=== PATIENT | female | born 1940 | race Caucasian/White ===

== ENCOUNTER 2017-01-21 09:25 | Outpatient (CLI) ==
[2017-01-21 09:45] LABS: BASOPHILS # (AUTO) 0.1 K/uL (0-0.2); BASOPHILS % (AUTO) 0.6 % (0.0-3.0); EOSINOPHILS # (AUTO) 0.1 K/ul (0.0-0.7); EOSINOPHILS % (AUTO) 0.9 % (0.0-7.0); HEMATOCRIT 34.4 % (37.0-47.0); HEMOGLOBIN 12.4 g/dl (12.0-16.0); IMMATURE GRANULOCYTE % (AUTO) 2.1 % (0.0-5.0); LYMPHOCYTES % (AUTO) 22.4 (10.0-50.0); MEAN CORPUSCULAR HEMOGLOBIN 30.8 pg (27.0-31.0); MEAN CORPUSCULAR VOLUME 85.6 fl (81.0-99.0); MONOCYTES # (AUTO) 0.8 K/uL (0.4-2.0); MONOCYTES % (AUTO) 8.9 (0-10); NEUTROPHILS # (AUTO) 5.9 K/ul (2.0-6.9); NEUTROPHILS % (AUTO) 65.1; PLATELET COUNT 288 10^3/uL (140-440); RED BLOOD COUNT 4.02 10^6/ul (4.20-5.40); WHITE BLOOD COUNT 9.08 K/ul (4.6-10.2)
[2017-01-21 10:07] LABS: ALBUMIN 2.8 g/dL (3.4-5.0); ALBUMIN/GLOBULIN RATIO 0.67; BILIRUBIN,TOTAL 0.75 mg/dL (0.00-1.20); BUN/CREATININE RATIO 25.88; CALCIUM 9.5 mg/dL (8.2-10.2); CREATININE 0.85 mg/dL (0.60-1.30)
== END 2017-01-21 09:26 | disposition home or self-care (01) ==
LOC: LAB 09:25
PROVIDERS: ATTEND Family Medicine
DX: E87.6 Hypokalemia (principal)
CPT/HCPCS: 36415; 80053; 85025

== ENCOUNTER 2017-02-13 08:12 | Outpatient (CLI) ==
--- NOTE | 2017-02-13 09:07 | US ---
EXAM: Renal ultrasound HISTORY: Hematuria COMPARISON: None TECHNIQUE: Renal ultrasound was performed FINDINGS: Right kidney measures 4.4 x 3.7 x 10.0 cm. Left kidney measures 4.6 x 1.6 x 10.3 cm. Re nal cortical echogenicity is normal. No hydronephrosis or renal calculus large enough to cause acou stic shadowing. There is a probable cyst in the left mid kidney measuring 1.7 x 3.8 x 1.9 cm, and ap pearing to haveposterior through transmission, though is poorly evaluated due to artifact and may troy ve internal complexity. Bladder grossly unremarkable. IMPRESSION: 1. No hydronephrosis. 2. Probable cyst in the left mid kidney measuring 1.7 x 3.8 x 1.9 cm, though is poorly evaluated du e to artifact and may have internal complexity. Sonographic follow-up recommended 6 months for reeva luation. CT could also be considered for further characterization.
== END 2017-02-13 08:13 | disposition home or self-care (01) ==
LOC: RAD 08:12
PROVIDERS: ATTEND Family Medicine
DX: R31.9 Hematuria, unspecified (principal)
CPT/HCPCS: 76770

== ENCOUNTER 2017-05-14 06:19 | Outpatient (CLI) ==
[2017-05-14 06:35] LABS: BASOPHILS # (AUTO) 0.1 K/uL (0-0.2); BASOPHILS % (AUTO) 0.8 % (0.0-3.0); EOSINOPHILS # (AUTO) 0.1 K/ul (0.0-0.7); EOSINOPHILS % (AUTO) 1.9 % (0.0-7.0); HEMATOCRIT 35.1 % (37.0-47.0); HEMOGLOBIN 12.3 g/dl (12.0-16.0); IMMATURE GRANULOCYTE % (AUTO) 0.3 % (0.0-5.0); LYMPHOCYTES % (AUTO) 31.8 (10.0-50.0); MEAN CORPUSCULAR HEMOGLOBIN 30.9 pg (27.0-31.0); MEAN CORPUSCULAR VOLUME 88.2 fl (81.0-99.0); MONOCYTES # (AUTO) 0.4 K/uL (0.4-2.0); MONOCYTES % (AUTO) 6.6 (0-10); NEUTROPHILS # (AUTO) 3.6 K/ul (2.0-6.9); NEUTROPHILS % (AUTO) 58.6; PLATELET COUNT 199 10^3/uL (140-440); RED BLOOD COUNT 3.98 10^6/ul (4.20-5.40); WHITE BLOOD COUNT 6.17 K/ul (4.6-10.2)
[2017-05-14 06:54] LABS: ALBUMIN 3.5 g/dL (3.4-5.0); BILIRUBIN,TOTAL 0.47 mg/dL (0.00-1.20); BUN/CREATININE RATIO 20.77; CALCIUM 9.8 mg/dL (8.2-10.2); CREATININE 0.77 mg/dL (0.60-1.30)
--- NOTE | 2017-05-14 09:03 | DI ---
EXAM: CHEST FRONTAL AND LATERAL VIEWS HISTORY: Preop, pancreatic mass. COMPARISON: None FINDINGS: Normal heart size. No vascular congestion or consolidated pneumonia. No visible pleural fluid or pneumothorax. Mild hyperinflation. Chronic-appearing interstitial changes. Nodular thicke matthew of the upper pleura bilaterally likely represents fibrosis. Cannot exclude regional pathology ( neoplasia) radiographically. IMPRESSION: 1. No acute process. 2. Mild hyperinflation. 3. Nodular thickening of the apical pleura.
== END 2017-05-14 06:20 | disposition home or self-care (01) ==
LOC: RAD 06:19
PROVIDERS: ATTEND Surgery
DX: K86.9 Disease of pancreas, unspecified (principal)
CPT/HCPCS: 36415; 80053; 85025; 93005; 93010

== ENCOUNTER 2018-05-13 10:24 | Day surgery (SDC) ==
[2018-05-13 11:00] VITALS: TEMP 98.7
[2018-05-13] MEDS ORDERED: DIPRIVAN 20 ML VIAL IVP ONE (12:30)
[2018-05-13] MEDS ORDERED: VERSED ONE (12:30)
[2018-05-13 13:18] VITALS: BP 144/62
--- NOTE | 2018-05-14 10:07 | OP ---
INDICATIONS FOR PROCEDURE: 77-year-old female presents for colonoscopy examination. She has a history of adenomatous polyps. She is also a survivor of pancreatic cancer. Her last colonoscopy was over four years ago. MEDICATIONS: SEE ANESTHESIA NOTES. PROCEDURE: COLONOSCOPY, SNARE POLYPECTOMY. REPORT: The risks, benefits, alternatives and limitations were discussed in detail with the patient. Informed consent was obtained. After adequate sedation was achieved, a digital rectal exam revealed good tone, no masses. The colonoscope was introduced into the rectum and advanced under direct visual guidance to the cecum. The cecum was identified by the appendiceal orifice and IC valve. In the cecum, there is a small 5 mm semi sessile polyp. I removed this by snare technique. I then slowly withdrew the scope in a circumferential manner examining the mucosa quite carefully. I looked on the proximal and distal side of folds and flexures as best as possible. In the mid distal sigmoid colon there was a slightly raised, 6 mm polyp that I removed by snare technique. No other abnormalities were noted including on retroflex view of the anal canal. The prep was good. The withdrawal time is 10 minutes and 15 seconds. The patient tolerated the procedure well with stable vital signs and pulse oximetry throughout. IMPRESSION: 1. TWO (2) SMALL POLYPS REMOVED. RECOMMENDATIONS: 1. Office visit as needed. 2. Await pathology results. 3. If she is clinically well, consider surveillance colonoscopy examination again in 5 years. CC: DR. MATTHEW KIRKLAND
== END 2018-05-13 13:50 | disposition home or self-care (01) ==
LOC: SURG 10:24
PROVIDERS: ATTEND Internal Medicine Gastroenterology
DX: Z86.010 Personal history of colon polyps (principal); Z83.71 Family history of colonic polyps; D68.9 Coagulation defect, unspecified; K63.5 Polyp of colon; D12.0 Benign neoplasm of cecum; D12.5 Benign neoplasm of sigmoid colon